=== PATIENT | female | born 1995 | race Caucasian/White ===

== ENCOUNTER 2019-04-07 18:06 | Inpatient (IN) | payer OTHER, SELFPAY | END 2019-04-10 11:25 | disposition home or self-care (01) | DRG 195 | PROVIDERS: Admitting Provider Internal Medicine; Emergency Provider General Practice; PCP Family Medicine; Visit Provider Internal Medicine | DX: J18.9 Pneumonia, unspecified organism (principal); F41.8 Other specified anxiety disorders; F90.9 Attention-deficit hyperactivity disorder, unspecified type; R00.0 Tachycardia, unspecified; E86.0 Dehydration; E28.2 Polycystic ovarian syndrome; J30.9 Allergic rhinitis, unspecified | CPT/HCPCS: 36415; 71046; 71275; 80048; 80053; 81025; 82533; 83605; 83690; 83735; 84439; 84443; 84484; 85025; 85027; 85380; 86308; 87040; 87081; 87449; 87880; 87899; 93005; 93306; 96361; 96365; 96375; 99285; A9270; J0131; J0456; J0696; J2765; J7030; J7060; J7120; Q9967 ==

== ENCOUNTER 2019-11-25 10:11 | Outpatient (CLI) | payer OTHER, SELFPAY ==
--- NOTE | ~2019-11-25 | XR_ITS ---
XR chest 2V DATE: 11/25/2019 10:35 INDICATION: Cough TECHNIQUE: PA and lateral views COMPARISON: CT pulmonary scan of 04/07/2019 04/07/2019 2 view chest FINDINGS: Normal heart size. No hilar or mediastinal enlargement. No pulmonary infiltrate or consolid ation, pleural effusion or pulmonary vascular congestion or pneumothorax. Included skeletal structures appear normal. IMPRESSION: Negative chest Reviewed, dictated and finalized at location B. IMPRESSION: Negative chest
== END 2019-11-25 10:12 | disposition home or self-care (01) ==
LOC: ANHIMG 10:17
PROVIDERS: PCP Family Medicine; Visit Provider Family Medicine
DX: J20.9 Acute bronchitis, unspecified (principal)
CPT/HCPCS: 71046

== ENCOUNTER 2019-12-24 14:24 | Outpatient (CLI) | payer OTHER, SELFPAY ==
--- NOTE | ~2019-12-24 | XR_ITS ---
XR chest 2V DATE: 12/24/2019 14:39 INDICATION: Cough TECHNIQUE: PA and lateral views COMPARISON: 11/25/2019 2 view chest FINDINGS: Normal heart size. No hilar or mediastinal enlargement. No pulmonary infiltrate or consolid ation, pleural effusion or pulmonary vascular congestion or pneumothorax. Included skeletal structure s are unremarkable. IMPRESSION: No active cardiopulmonary disease Reviewed, dictated and finalized at location A.
== END 2019-12-24 14:25 | disposition home or self-care (01) ==
PROVIDERS: PCP Family Medicine; Visit Provider Family Medicine
DX: R68.89 Other general symptoms and signs (principal); R05 Cough
CPT/HCPCS: 71046; 87635; C9803; U0003

== ENCOUNTER 2020-01-26 13:39 | Outpatient (CLI) | payer OTHER, SELFPAY ==
--- NOTE | ~2020-01-26 | CT_ITS ---
EXAMINATION: CT sinus wo con DATE: 01/26/2020 14:30 INDICATION: Orthostatic hypotension. Sinusitis. TECHNIQUE: Computed tomography (CT) of the paranasal sinuses was performed without intravenous contra st. The dose-length product was 301.30 mGy-cm. Automated exposure control and iterative reconstructio n technique were employed. COMPARISON: None FINDINGS: Paranasal sinuses are pneumatized without significant mucosal thickening or air-fluid level . Ostiomeatal units are patent. Leftward nasal septal deviation. Mastoids are pneumatized. IMPRESSION: 1. No significant sinus disease. Reviewed, dictated and finalized at location A.
== END 2020-01-26 13:40 | disposition home or self-care (01) ==
PROVIDERS: PCP Family Medicine; Visit Provider Family Medicine
DX: I95.1 Orthostatic hypotension (principal); R05 Cough; R51 Headache
CPT/HCPCS: 70486

== ENCOUNTER 2020-02-19 08:30 | Outpatient (CLI) | payer OTHER, SELFPAY ==
--- NOTE | 2020-02-21 10:52 | WPDPFTINT ---
PFT Interpretation PFT Interpretation: This PFT met all criteria for ATS standards and reproducibility FEV/FVC post bronchodilator 65% of predicted FEV1 73% or 2.33 liters FVC 91% or 3.60 liters There was great improvement of post bronchodilator FVC by 510 ml and 16%. TLC 89% of predicted RV 69% RV/TLC 23% DLCO 66% when adjusted for alveolar volume but not adjusted for hemoglobin Flow volume loops showed appeared normal Impression: Moderate airflow obstruction with good response to bronchodilators. Mildly reduced diffusion capacity. This pattern is more consisten with Asthma/Reactive airway disease despite the low diffusion capacity.Clinical correlation is advised.
== END 2020-02-19 08:31 | disposition home or self-care (01) ==
PROVIDERS: PCP Family Medicine; Visit Provider Family Medicine
DX: R05 Cough (principal)
CPT/HCPCS: 94060; 94726; 94729

== ENCOUNTER 2020-03-27 15:15 | Emergency (ER) | payer OTHER, SELFPAY ==
--- NOTE | ~2020-03-27 | XR_ITS ---
EXAMINATION: XR chest 2V 03/27/2020 15:33 INDICATION: Shortness of breath and cough PROCEDURE: 2 view chest COMPARISON: Comparison to multiple prior studies sequentially, with oldest reviewed study dated 01/12. FINDINGS: The lungs are clear. The cardiomediastinal silhouette is within normal limits. There are no pleural effusions. There is no pneumothorax suspected. IMPRESSION: 1: NO ACUTE CARDIOPULMONARY DISEASE. Reviewed, dictated and finalized at location A.
[2020-03-27 15:28] VITALS: BP 135/78; PULSE 92; RESP 20; TEMP 36.4; O2SAT 100
--- NOTE | 2020-03-27 15:30 | ED.URI ---
HPI - URI/Sore Throat General Chief Complaint: Upper Respiratory Infection Stated Complaint: sob/cough Source: patient and RN notes reviewed Mode of arrival: ambulatory Limitations: no limitations History of Present Illness HPI Narrative: The patient- who has history of RAD, anxiety, obesity -presents with cough. Patient states she is compliant with her asthma medications including prednisone taper and call EMS yesterday for cough or shortness of breath. She was screened and released by EMS and then called her doctor. Her physician is scheduled to see her tomorrow but advised her to be checked today possibly for chest x-ray. She was hospitalized, and had pneumonia last year seen on chest CT scan done for PE, and good chest x-ray since; also had a noncontributory COVID test this last week. She complains of continued nonproductive cough, minimally responsive to cough syrup, updrafts [unresponsive to other meds like Tessalon Perles, prior antibiotics x2 ] She is a non-smoker, yet has a pet dog that she sleeps with; no fever, sputum changes, calf pain/edema, recent trips, sick contacts, loss of taste/smell, N/V/D/dehydration. She does feel lightheaded when coughing hard, so recommend to go to hospital for higher test if not improved. Otherwise, advised to keep pulmonary appointment tomorrow Related Data Home Medications Medication Instructions Recorded Confirmed cetirizine 10 mg capsule 10 mg PO DAILY 03/01/20 03/27/20 budesonide-formoterol [Symbicort] INHALATION BID 03/27/20 levalbuterol tartrate [Xopenex HFA] inh INHALATION BID 03/27/20 Allergies Allergy/AdvReac Type Severity Reaction Status Date / Time lactase Allergy Unknown diarrhea Verified 12/24/19 11:07 lactose Allergy Unknown Diarrhea Verified 12/24/19 11:07 Review of Systems Review of Systems: Narrative: General/Constitutional: No weight loss,fever Eyes: N0: Redness,discharge Ears/Nose/Throat: No: Epistaxis,ear discharge Respiratory: Denies: Hemoptysis Gastrointestinal: No Vomiting, Bleeding-rectal Skin: No Lumps, eruption Neurologic: No Focal Weakness,Sz Hematologic: Denies: Petechiae/Purpura Psychiatric: No: Suicida ideationl All Other Systems: Reviewed and Negative [facility] Social History Social History Social History: Single Smoking status: Never smoker Second hand tobacco smoke exposure: No Alcohol intake: never Substance use: never Substance use type: does not use Gender identity (if verbalized by the patient): Female Comments At time of signature, agree with nursing past medical, surgical, social and family history. There is no relevant family history pertinent to the presenting complaint Exam Narrative: Exam Narrative: General Appearance: Obese, , No distress EYE: PERRLA, Conjunctiva clear Ears: External ear normal Nose: Normal nose Mouth/Throat: Normal appearing, Normal lips Neck: Supple Respiratory: Airway patent, No respiratory distress, CTA Cardiovascular: distant RRR Musculoskeletal: Full ROM Skin: Warm, Dry Neurological: A&O x3, CN II-X intact Psychiatric: Normal mood, Normal affect Course Vital Signs Vital signs: Vital Signs Temperature 97.5 F L 03/27/20 15:28 Pulse Rate 92 03/27/20 15:28 Respiratory Rate 20 03/27/20 15:28 Blood Pressure 135/78 03/27/20 15:28 Pulse Oximetry 100 03/27/20 15:28 Temperature 97.5 F L 03/27/20 15:28 Pulse Rate 92 03/27/20 15:28 Respiratory Rate 20 03/27/20 15:28 Blood Pressure 135/78 03/27/20 15:28 Pulse Oximetry 100 03/27/20 15:28 Discharge Plan Discharge Clinical Impression: Chronic cough Patient Disposition: Home, Self-Care Condition: Stable Instructions: Chronic Cough (ED) Additional Instructions: See resource manager/her doctor as scheduled this week Continue your prior lung medicines Prescriptions: New montelukast [Singulair] 10 mg tablet 10 mg
== END 2020-03-27 16:38 | disposition home or self-care (01) ==
PROVIDERS: Emergency Provider Emergency Medicine; PCP Family Medicine
DX: R05 Cough (principal); R06.02 Shortness of breath; J45.909 Unspecified asthma, uncomplicated
CPT/HCPCS: 71046; 99213; G0463

== ENCOUNTER 2020-04-16 14:10 | Emergency (ER) | payer OTHER, SELFPAY ==
--- NOTE | 2020-04-16 14:14 | ED.URI ---
HPI - URI/Sore Throat General Chief Complaint: Upper Respiratory Infection Stated Complaint: cough/fatigue/congestion/elevated bp/chest tightne Time Seen by Provider: 04/16/20 14:18 Source: patient and RN notes reviewed Mode of arrival: ambulatory Limitations: no limitations History of Present Illness HPI Narrative: 24-year-old female with history of asthma presents with concern for cough, feeling increased heart rate, increased blood pressure, nasal congestion, postnasal drainage for 1 week. Reports symptoms have got worse over the last 2 days. Reports she has not needed to use her albuterol rescue inhaler in the last 2 days. Reports she has been taking her routine asthma meds as prescribed. Denies fever, chills, body aches. MD elicited complaint: cough Related Data Home Medications Medication Instructions Recorded Confirmed budesonide-formoterol [Symbicort] INHALATION BID 03/27/20 levalbuterol tartrate [Xopenex HFA] inh INHALATION BID 03/27/20 Allergies Allergy/AdvReac Type Severity Reaction Status Date / Time lactase Allergy Unknown diarrhea Verified 12/24/19 11:07 lactose Allergy Unknown Diarrhea Verified 12/24/19 11:07 Review of Systems Review of Systems: Narrative: CONSTITUTIONAL: Reports malaise, fatigue. Denies chills, sweats, or fever. EYES: Denies visual changes, redness, or discharge. ENT: Reports rhinorrhea, congestion. Denies sinus pain, otalgia and sore throat. CARDIOVASCULAR: Denies chest pain, palpitations, or edema. RESPIRATORY: Reports cough, occasional dyspnea. GASTROINTESTINAL: Denies abdominal pain, nausea, vomiting, diarrhea SKIN: Denies rash or itching. MUSCULOSKELETAL: Denies myalgia. NEUROLOGIC: Denies headache. All systems reviewed & are unremarkable except as noted in HPI and below PMFSH Social History Social History Social History: Single Smoking status: Never smoker Second hand tobacco smoke exposure: No Alcohol intake: never Substance use: never Substance use type: does not use Gender identity (if verbalized by the patient): Female Comments At time of signature, agree with nursing past medical, surgical, social and family history. There is no relevant family history pertinent to the presenting complaint Exam Narrative: Exam Narrative: GENERAL: Well-appearing, well-nourished, and in no acute distress. HEAD: Normocephalic EYES: PERRLA, conjunctivae clear ENT: Nares clear, turbinates edematous and erythematous, clear discharge. Mucous membranes moist. TM pearly gale with dull light reflex bilaterally; no tragal tenderness. Oropharynx not erythematous without lesions. Tonsils not enlarged and without exudate, no drooling, no hoarseness, no trismus, uvula midline. NECK: Supple. No lymphadenopathy CHEST: Clear to auscultation, breath sounds equal. No wheezing, rhonchi, rales, or stridor. No respiratory distress, speaks in full sentences. HEART: Regular rate and rhythm. No murmur heard. SKIN: Warm, dry, no rash. NEURO: Alert and oriented x3. PSYCH: Normal mood and affect Course Course Emergency Course: Patient is aware of diagnosis, understands and agrees to treatment plan. Anticipatory guidance given. Patient agrees to follow-up as directed and is aware of reasons to seek care at the emergency department. Portions of this record may have been created with voice recognition software Vital Signs Vital signs: Vital Signs Temperature 98.1 F 04/16/20 14:16 Pulse Rate 123 H 04/16/20 14:16 Respiratory Rate 04/16/20 14:16 Blood Pressure 150/98 H 04/16/20 14:16 Pulse Oximetry 100 04/16/20 14:16 Temperature 98.1 F 04/16/20 14:16 Pulse Rate 123 H 04/16/20 14:16 Respiratory Rate 04/16/20 14:16 Blood Pressure 150/98 H 04/16/20 14:16 Pulse Oximetry 100 04/16/20 14:16 Reviewed. MDM - URI/Sore Throat MDM Narrative Medical decision making narrative: Differential diagnosis considered: Cor
[2020-04-16 14:16] VITALS: BP 150/98; PULSE 123; RESP 20; TEMP 36.7; O2SAT 100
== END 2020-04-16 14:35 | disposition home or self-care (01) ==
PROVIDERS: Emergency Provider Nurse Practitioner; PCP Family Medicine
DX: J06.9 Acute upper respiratory infection, unspecified (principal); J45.909 Unspecified asthma, uncomplicated
CPT/HCPCS: 99213; G0463

== ENCOUNTER 2020-08-09 15:57 | Emergency (ER) | payer OTHER, SELFPAY ==
[2020-08-09 16:11] VITALS: BP 136/92; PULSE 95; RESP 20; TEMP 36.6; O2SAT 100
--- NOTE | 2020-08-09 16:11 | ED.GENADULT ---
HPI - General Adult General Chief complaint: Upper Respiratory Infection Stated complaint: throat swollen Time Seen by Provider: 08/09/20 16:16 Source: patient and RN notes reviewed Mode of arrival: ambulatory Limitations: no limitations History of Present Illness HPI narrative: 24-year-old female presents with complaints of sore throat with right tonsil swelling for the past 3 days. Patricia says she has been having a increasing sore throat and RT tonsil swelling for the past 3 days, symptoms has been off and on for the past 2-3 months. Zyrtec (none in 3-4 days unable to locate it per Patricia) and routine Asthma medication with little relief. No high fevers, drooling, neck or throat swelling. Pain is bilateral. Hurts to swallow. Exacerbation factors consist of eating and drinking. No rhinorrhea or nasal congestion. No voice change. Tolerating liquids well. Denies chills, dyspnea, difficulty swallowing, jaw pain, dental pain, facial pain, foreign body sensation, and rash. LMP 07/30-05-15, denies being . Remains active. The patient reports she have not been diagnosed with COVID-19. The patient reports she is not waiting for the results of a COVID-19 lab test. The patient reports she do not have fever, chills, weakness, or fatigue. The patient reports she do not have a new or worsening cough or shortness of breath. Denies chest pain. The patient reports she do not have any loss of taste, nausea, vomiting, abdominal pain, and diarrhea. Denies recent traveling. Patricia says she is concerned for COVID-19 due to having people (with masks) in home helping with moving over the past 3-4 days. Otherwise denies exposures been home with limited outdoor exposure except for essential household needs, work (none in 2 weeks), and return home. At this time, patient is not suspected of having COVID-19. Some parts of this dictation were generated by voice recognition software and may contain typographical and/or grammatical inaccuracies. Related Data Home Medications Medication Instructions Recorded Confirmed budesonide-formoterol [Symbicort] 1 puff INHALATION BID 03/27/20 08/09/20 levalbuterol tartrate [Xopenex HFA] inh INHALATION BID 03/27/20 Allergies Allergy/AdvReac Type Severity Reaction Status Date / Time grass pollen Allergy Mild Itching Verified 07/27/20 10:17 oak Allergy Mild Itching Verified 07/27/20 10:17 lactase Allergy Unknown diarrhea Verified 07/27/20 10:17 lactose Allergy Unknown Diarrhea Verified 07/27/20 10:17 Review of Systems Review of Systems: Narrative: CONSTITUTIONAL: Denies fever, chills, sweats. EYES: Denies visual changes, redness, discharge. ENT: Denies rhinorrhea, cngestion, otalgia. Complains of sore throat with right tonsil swelling. CARDIOVASCULAR: Denies chest pain, palpitations, edema. RESPIRATORY: Denies dyspnea, wheezing, cough. GASTROINTESTINAL: Denies abdominal pain, nausea, vomiting, diarrhea. SKIN: Denies rash or itching. MUSCULOSKELETAL: Denies acute back pain, joint pain, or myalgia. NEUROLOGIC: Denies numbness or focal weakness. PSYCHIATRIC: Denies anxiety or depression. All systems reviewed & are unremarkable except as noted in HPI and below. [facility] Past Medical History Medical History (Updated 08/09/20 @ 16:28 by TEE Abernathy) Acute sinusitis Chronic cough Depression Gastroenteritis Generalized anxiety disorder Hirsutism History of bronchitis History of suicidal ideation Infected pilonidal cyst MDD (major depressive disorder), recurrent episode, moderate Obesity (BMI 35.0-39.9 without comorbidity) Pollen allergies Polycystic ovarian syndrome Strain of right knee Tachycardia Surgical History Surgical History (Updated 08/09/20 @ 16:25 by TEE Abernathy) History of myringotomy Family History Family History Mother Depression Unknown Diabetes mellitus Cancer Hypertension
== END 2020-08-09 16:46 | disposition home or self-care (01) ==
PROVIDERS: Emergency Provider Nurse Practitioner Family; PCP Family Medicine
DX: J02.9 Acute pharyngitis, unspecified (principal); Z20.828 Contact with and (suspected) exposure to other viral communicable diseases; E28.2 Polycystic ovarian syndrome
CPT/HCPCS: 87081; 87804; 87880; 99213; G0463

== ENCOUNTER 2021-01-24 15:30 | Outpatient (CLI) | payer OTHER, SELFPAY ==
--- NOTE | ~2021-01-24 | XR_ITS ---
XR chest 2V DATE: 01/24/2021 16:00 INDICATION: Cough, tachycardia. History of asthma. TECHNIQUE: PA and lateral views COMPARISON: 03/27/2020 2 view chest FINDINGS: Normal heart size. No hilar or mediastinal enlargement. The lungs are normally inflated and clear of infiltrate or consolidation. No pleural effusion or pulmonary vascular congestion or pneumo thorax. IMPRESSION: No active cardiac pulmonary disease Reviewed, dictated and finalized at location A.
[2021-01-24 16:28] LABS: Basophils Percent Auto 0.2 % (0.2-1.2); Eosinophils Absolute Auto 0.1 K/mm3 (0-0.3); Eosinophils Percent Auto 1.3 % (0-4.4); Hematocrit 42.9 % (37.0-47.0); Hemoglobin 14.2 g/dL (12.0-15.0); Immature Granulocyte Absolute 0.03 K/mm3 (0.00-0.031); Immature Granulocyte Percent A 0.3 % (0-0.5); Lymphocytes Percent Auto 25.8 % (18.3-44.2); Mean Corpuscular HGB Conc 33.1 g/dl (32-36); Mean Corpuscular Hemoglobin 29.3 pg (26-34); Mean Corpuscular Volume 88.6 fl (80-100); Monocytes Absolute Auto 0.5 K/mm3 (0.1-0.6); Neutrophils Absolute Auto 6.5 K/mm3 (1.3-6.7); Neutrophils Percent Auto 67.4 % (45.5-73.1); Platelet Count Result 364 k/mm3 (150-375); Red Blood Count 4.84 M/mm3 (4.2-5.4); Red Cell Distribution Width 11.8 % (11.5-14.5); White Blood Count 9.7 K/mm3 (4.5-10.0)
[2021-01-24 16:37] LABS: Alanine Aminotransferase 17 U/L (4-35); Albumin Level 4.6 g/dL (3.5-5.1); Alkaline Phosphatase 74 U/L (38-126); Anion Gap 11 mmol/L (8-16); Aspartate Amino Transferase 23 U/L (14-36); Bilirubin,Total 0.5 mg/dL (0.2-1.3); Blood Urea Nitrogen 10 mg/dL (7-17); Calcium 9.9 mg/dL (8.4-10.2); Carbon Dioxide 27 mmol/L (22-30); Chloride 103 mmol/L (98-107); Estimated Glomerular Filt Rate > 60; Glucose 93 mg/dL (65-105); Potassium 3.9 mmol/L (3.4-5.0); Sodium 141 mmol/L (137-145)
[2021-01-24 17:50] LABS: Erythrocyte Sedimentation Rate 17 mm/hr (0-20)
== END 2021-01-24 15:31 | disposition home or self-care (01) ==
LOC: ANHIMG 15:39
PROVIDERS: PCP Family Medicine; Visit Provider Family Medicine
DX: R05 Cough (principal); R00.0 Tachycardia, unspecified; J45.909 Unspecified asthma, uncomplicated
CPT/HCPCS: 36415; 71046; 80053; 85025; 85652

== ENCOUNTER → 2021-03-24 07:01 | Outpatient (CLI) | payer OTHER, SELFPAY ==
[2021-03-24 18:52] LABS: SARS-CoV-2 RNA PCR Negative
== END ==
PROVIDERS: PCP Family Medicine; Visit Provider Family Medicine
DX: R09.89 Other specified symptoms and signs involving the circulatory and respiratory systems (principal)
CPT/HCPCS: C9803; U0003; U0005

== ENCOUNTER 2021-03-25 14:39 | Emergency (ER) | payer OTHER, SELFPAY ==
[2021-03-25 14:44] VITALS: BP 141/84; PULSE 99; RESP 16; TEMP 36.4; O2SAT 99
--- NOTE | 2021-03-25 15:56 | ED.URI ---
HPI - URI/Sore Throat General Chief Complaint: Upper Respiratory Infection Stated Complaint: CHEST PAIN Source: patient and RN notes reviewed Limitations: no limitations History of Present Illness HPI Narrative: The vaccinated patient-- a non-smoker/nondrinker with a history of RAD-- presents with 1/2-week history of initially definite but resolving diarrhea, followed by cough, myalgias with back pains. No fever, wheeze, CP, loss of taste/smell, S OB, wheezing, vomiting; she had prior negative Covid test. Symptoms are mild, unrelieved with OTC preparations like Zyrtec, Symbicort-and her asthma is not worse. Related Data Home Medications Medication Instructions Recorded Confirmed budesonide-formoterol [Symbicort] 1 puff INHALATION BID 03/27/20 01/28/21 Allergies Allergy/AdvReac Type Severity Reaction Status Date / Time grass pollen Allergy Mild Itching Verified 01/24/21 14:28 oak Allergy Mild Itching Verified 01/24/21 14:28 lactase Allergy Unknown diarrhea Verified 01/24/21 14:28 lactose Allergy Unknown Diarrhea Verified 01/24/21 14:28 Review of Systems Review of Systems: The patient has been informed that they may have pre-hypertension or Hypertension based on a BP reading in the department. I recommend that the patient call the primary care provider listed on their discharge instructions or a physician of their choice this week to arrange follow up for further evaluation of possible pre-hypertension or Hypertension General/Constitutional: No weight loss,fever Eyes: N0: Redness,discharge Ears/Nose/Throat: No: Epistaxis,ear discharge Respiratory: Denies: Hemoptysis Gastrointestinal: No Vomiting, Bleeding-rectal Skin: No Lumps, eruption Neurologic: No Focal Weakness,Sz Hematologic: Denies: Petechiae/Purpura Psychiatric: No: Suicida ideationl All Other Systems: Reviewed and Negative [facility] Past Medical History Medical History Acute sinusitis Chronic cough Depression Gastroenteritis Generalized anxiety disorder Hirsutism History of bronchitis History of suicidal ideation Infected pilonidal cyst MDD (major depressive disorder), recurrent episode, moderate Obesity (BMI 35.0-39.9 without comorbidity) Pollen allergies Polycystic ovarian syndrome Strain of right knee Tachycardia Surgical History Surgical History History of myringotomy Family History Family History Mother Depression Unknown Diabetes mellitus Cancer Hypertension Social History Social History Social History: Single Second hand tobacco smoke exposure: No Alcohol intake: never Alcohol use details: rarely Substance use: never Substance use type: does not use Gender identity (if verbalized by the patient): Female Comments At time of signature, agree with nursing past medical, surgical, social and family history. There is no relevant family history pertinent to the presenting complaint Exam Narrative: General Appearance: Well appearing, Well nourished EYE: PERRLA, Conjunctiva clear Ears: Auditory canal normal, TM normal Nose: Rhinorrhea, Mucousal erythema Mouth/Throat: MM moist, Uvula midline, Pharyngeal erythema Neck: Supple, No adenopathy Respiratory: No respiratory distress, Breath sounds equal, Clear to auscultation Cardiovascular: RRR, No JVD Musculoskeletal: Non tender, Normal strength Skin: Warm, Dry Neurological: A&O x3, CN II-XII intact Psychiatric: Normal mood, Normal affect Course Vital Signs Vital signs: Vital Signs Temperature 97.6 F 03/25/21 14:44 Pulse Rate 99 03/25/21 14:44 Respiratory Rate 16 03/25/21 14:44 Blood Pressure 141/84 H 03/25/21 14:44 Pulse Oximetry 99 03/25/21 14:44 Temperature 97.6 F 03/25/21 14:44 Pulse Rate 99
== END 2021-03-25 16:13 | disposition home or self-care (01) ==
PROVIDERS: Emergency Provider Emergency Medicine; PCP Family Medicine
DX: J11.1 Influenza due to unidentified influenza virus with other respiratory manifestations (principal); Z20.822 Contact with and (suspected) exposure to COVID-19; E28.2 Polycystic ovarian syndrome; E66.9 Obesity, unspecified; Z68.37 Body mass index [BMI] 37.0-37.9, adult
CPT/HCPCS: 99213; G0463

== ENCOUNTER → 2021-04-21 03:59 | Outpatient (CLI) | payer OTHER, SELFPAY ==
[2021-04-21 18:23] LABS: SARS-CoV-2 RNA PCR Negative
== END ==
PROVIDERS: Emergency Medicine; PCP Family Medicine; Visit Provider Physician Assistant
DX: R05 Cough (principal); Z20.822 Contact with and (suspected) exposure to COVID-19
CPT/HCPCS: C9803; U0003; U0005

== ENCOUNTER 2021-11-14 13:50 | Emergency (ER) | payer OTHER, SELFPAY ==
--- NOTE | 2021-11-14 14:21 | ED.SKABFB ---
HPI - Skin/Abscess/Foreign Bdy General Chief complaint: Extremity Injury, Lower Stated complaint: Rt Foot Irritation Time Seen by Provider: 11/14/21 14:45 Source: patient and RN notes reviewed Mode of arrival: ambulatory Limitations: no limitations History of Present Illness HPI narrative: 26-year-old female presents with concern for irritation, extra flap of skin, bleeding for 5 days to the medial edge of the first toenail of the right foot. Reports she has been using a Band-Aid and Neosporin. She denies any purulent drainage. She denies any injury or trauma. She reports history of ingrown toenail as a child. MD complaint: other Related Data Home Medications Medication Instructions Recorded Confirmed dextroamphetamine-amphetamine ER 15 mg PO DAILY 04/20/21 11/14/21 15 mg 24hr capsule,extend release budesonide-formoterol [Symbicort] 1 inh INHALATION DAILY 11/14/21 11/14/21 Allergies Allergy/AdvReac Type Severity Reaction Status Date / Time grass pollen Allergy Mild Itching Verified 11/14/21 14:40 oak Allergy Mild Itching Verified 11/14/21 14:40 lactase Allergy Unknown diarrhea Verified 11/14/21 14:40 lactose Allergy Unknown Diarrhea Verified 11/14/21 14:40 Review of Systems Review of Systems: CONSTITUTIONAL: Denies malaise, chills, sweats, or fever. SKIN: Reports painful slowly bleeding swollen area near the right toenail MUSCULOSKELETAL: Denies musculoskeletal pain NEUROLOGIC: Denies decreased sensation, strength, range of motion All systems reviewed & are unremarkable except as noted in HPI and below PMFSH Past Medical History Medical History Acute sinusitis Chronic cough Depression Gastroenteritis Generalized anxiety disorder Hirsutism History of bronchitis History of suicidal ideation Infected pilonidal cyst MDD (major depressive disorder), recurrent episode, moderate Obesity (BMI 35.0-39.9 without comorbidity) Pollen allergies Polycystic ovarian syndrome Strain of right knee Tachycardia Surgical History Surgical History History of myringotomy Family History Family History Mother Depression Unknown Diabetes mellitus Cancer Hypertension Social History Social History (Updated 06/09/21 @ 10:54 by Alejandrina Arnold Social History: Single Smoking status: Never smoker Second hand tobacco smoke exposure: No Alcohol intake: never Alcohol use details: rarely Substance use: never Substance use type: does not use Additional occupation/education comments: Pt goes to school as well. Gender identity (if verbalized by the patient): Female Sexual Orientation (if Verbalized by the Patient): Straight or Heterosexual Comments At time of signature, agree with nursing past medical, surgical, social and family history. There is no relevant family history pertinent to the presenting complaint Exam Narrative: GENERAL: Well-appearing, well-nourished, and in no acute distress. HEAD: Normocephalic EYES: PERRLA, conjunctivae clear ENT: Mucous membranes moist. NECK: Supple. No lymphadenopathy CHEST: Clear to auscultation. No respiratory distress. HEART: Regular rate and rhythm. SKIN: Warm, dry. Paronychia noted to the right medial toenail with and a flap of open skin, no fluctuance or purulent drainage noted NEURO: Alert and oriented x3. PSYCH: Normal mood and affect Course Course Emergency Course: Patient is aware of diagnosis, understands and agrees to treatment plan. Anticipatory guidance given. Patient agrees to follow-up as directed and is aware of reasons to seek care at the emergency department. Portions of this record may have been created with voice recognition software Level of Care: Express Care Visit Vital Signs Vital signs: Reviewed. MDM - Skin/Abscess/Foreign Bdy MDM Narrative Medical decision rubi
[2021-11-14 14:27] VITALS: BP 126/74; PULSE 101; RESP 18; TEMP 36.6; O2SAT 100
== END 2021-11-14 15:00 | disposition home or self-care (01) ==
PROVIDERS: Emergency Provider Nurse Practitioner; PCP Family Medicine
DX: L03.031 Cellulitis of right toe (principal); E66.9 Obesity, unspecified; Z68.38 Body mass index [BMI] 38.0-38.9, adult; L68.0 Hirsutism
CPT/HCPCS: 99213; G0463

== ENCOUNTER 2022-05-14 15:27 | Emergency (ER) | payer OTHER, SELFPAY ==
[2022-05-14 15:36] VITALS: BP 123/65; PULSE 102; RESP 18; TEMP 36.6; O2SAT 99
[2022-05-14 15:48] VITALS: BP 123/65; PULSE 102; RESP 18; TEMP 36.6; O2SAT 99
--- NOTE | 2022-05-14 16:08 | ED.URI ---
HPI - URI/Sore Throat General Chief Complaint: Upper Respiratory Infection Stated Complaint: Body Aches,Weakness Time Seen by Provider: 05/14/22 15:45 Source: patient, RN notes reviewed and old records reviewed Mode of arrival: ambulatory Limitations: no limitations History of Present Illness HPI Narrative: 26-year-old female who [facility] with complaints of 1 hour ago developing symptoms of feeling very weak and shaky with body aches, reports that yesterday she had runny nose and her ears felt stuffy. Patient has had covid vaccinations and also booster in August of 2021. Patient denies any cough or any known fevers, chills or sweats reports some headache discomfort. We will contact MD elicited complaint: other (body aches, weakness) Pertinent past history: asthma Pain scale (0-10): 5 Treatments prior to arrival: none Related Data Home Medications Medication Instructions Recorded Confirmed dextroamphetamine-amphetamine ER 15 mg PO PRN PRN Anxiety 04/20/21 05/14/22 15 mg 24hr capsule,extend release (Adderall XR) budesonide-formoterol HFA 160 1 inh inhalation PRN PRN Shortness 11/14/21 05/14/22 mcg-4.5 mcg/actuation aerosol Of Breath inhaler (Symbicort) Allergies Allergy/AdvReac Type Severity Reaction Status Date / Time grass pollen Allergy Mild Itching Verified 05/14/22 15:36 oak Allergy Mild Itching Verified 05/14/22 15:36 lactase Allergy Unknown diarrhea Verified 05/14/22 15:36 lactose Allergy Unknown Diarrhea Verified 05/14/22 15:36 Review of Systems Review of Systems: CONSTITUTIONAL: Denies fever, chills, or sweats. EYES: Denies visual changes, redness, or discharge. ENT: Positive for rhinorrhea, congestion,no sore throat, pressure to ears CARDIOVASCULAR: Denies chest pain, palpitations, or edema. RESPIRATORY: Denies cough or dyspnea. GASTROINTESTINAL: Denies abdominal pain,reports no nausea vomiting, or diarrhea. GENITOURINARY: Denies dysuria or hematuria. SKIN: Denies rash or itching. MUSCULOSKELETAL: Denies back pain, joint pain, body aches reported NEUROLOGIC: Positive for headache, no numbness or weakness. PSYCHIATRIC: Positive history of anxiety or depression. All systems reviewed & are unremarkable except as noted in HPI and below PMFSH Past Medical History Medical History Acute sinusitis Chronic cough Depression Gastroenteritis Generalized anxiety disorder Hirsutism History of bronchitis History of suicidal ideation Infected pilonidal cyst MDD (major depressive disorder), recurrent episode, moderate Obesity (BMI 35.0-39.9 without comorbidity) Pollen allergies Polycystic ovarian syndrome Strain of right knee Tachycardia Surgical History Surgical History History of myringotomy Family History Family History Mother Depression Unknown Diabetes mellitus Cancer Hypertension Social History Social History Social History: Single Smoking status: Never smoker Second hand tobacco smoke exposure: No Alcohol intake: current Alcohol use details: rarely Substance use: never Substance use type: does not use Additional occupation/education comments: Pt goes to school as well. Gender identity (if verbalized by the patient): Female Sexual Orientation (if Verbalized by the Patient): Straight or Heterosexual Comments At time of signature, agree with nursing past medical, surgical, social and family history. There is no relevant family history pertinent to the presenting complaint Exam Narrative: GENERAL: Well-appearing, well-nourished, and in no acute distress. HEAD: Normocephalic, atraumatic. EYES: PERRLA and EOMI. ENT: Nares with mild redness clear rhinorrhea or epistaxis. Mucous membranes moist.TM's normal with good light reflex, throa
[2022-05-14 21:16] LABS: SARS-CoV-2 RNA PCR Negative
== END 2022-05-14 16:26 | disposition home or self-care (01) ==
PROVIDERS: Emergency Provider Registered Nurse; PCP Family Medicine
DX: J06.9 Acute upper respiratory infection, unspecified (principal); Z20.822 Contact with and (suspected) exposure to COVID-19; F41.1 Generalized anxiety disorder; E66.01 Morbid (severe) obesity due to excess calories; Z68.38 Body mass index [BMI] 38.0-38.9, adult; E28.2 Polycystic ovarian syndrome
CPT/HCPCS: 87426; 87804; 99213; C9803; G0463; U0003; U0005

== ENCOUNTER 2022-11-24 14:33 | Emergency (ER) | payer SELFPAY ==
[2022-11-24 14:47] VITALS: BP 142/93; PULSE 100; RESP 20; TEMP 36.3; O2SAT 99
--- NOTE | 2022-11-24 14:48 | ED.GENADULT ---
HPI - General Adult General Chief complaint: Upper Respiratory Infection Stated complaint: flu like symptoms Time Seen by Provider: 11/24/22 14:48 Source: patient Mode of arrival: ambulatory Limitations: no limitations History of Present Illness HPI narrative: 27-year-old female patient presents to the [facility] requesting a work note. Patient states she started having ill symptoms a week ago yesterday and did test positive for COVID this past Saturday. Patient states she continues to have a cough slight shortness of breath and needs a note for work. Patient also requesting to be tested again but she because she states that her COVID test at home are here . Patient does have history of asthma and has been using her home inhaler at times. Denies shortness of breath at this time but states has had a cough. Denies any fevers recently. Related Data Home Medications Medication Instructions Recorded Confirmed budesonide-formoterol HFA 160 1 inh inhalation PRN PRN Shortness 11/14/21 10/23/22 mcg-4.5 mcg/actuation aerosol Of Breath inhaler (Symbicort) Allergies Allergy/AdvReac Type Severity Reaction Status Date / Time grass pollen Allergy Mild Itching Verified 11/24/22 15:05 oak Allergy Mild Itching Verified 11/24/22 15:05 lactase Allergy Unknown diarrhea Verified 11/24/22 15:05 lactose Allergy Unknown Diarrhea Verified 11/24/22 15:05 Review of Systems Review of Systems: CONSTITUTIONAL: Denies fever, chills, or sweats. EYES: Denies visual changes, redness, or discharge. ENT: Denies rhinorrhea, congestion, sore throat, or otalgia. CARDIOVASCULAR: Denies chest pain, palpitations, or edema. RESPIRATORY: Positive cough or dyspnea. GASTROINTESTINAL: Denies abdominal pain, nausea, vomiting, or diarrhea. GENITOURINARY: Denies dysuria or hematuria. SKIN: Denies rash or itching. MUSCULOSKELETAL: Denies back pain, joint pain, or myalgia. NEUROLOGIC: Denies headache, numbness, or weakness. PSYCHIATRIC: Denies anxiety or depression. [facility] Past Medical History Medical History Acute sinusitis At increased risk of exposure to COVID-19 virus Chronic cough Depression Gastroenteritis Generalized anxiety disorder Hirsutism History of bronchitis History of suicidal ideation Infected pilonidal cyst MDD (major depressive disorder), recurrent episode, moderate Obesity (BMI 35.0-39.9 without comorbidity) Pollen allergies Polycystic ovarian syndrome Strain of right knee Tachycardia Surgical History Surgical History History of myringotomy Family History Family History Mother Depression Unknown Diabetes mellitus Cancer Hypertension Social History Social History Social History: Single Smoking status: Never smoker Second hand tobacco smoke exposure: No Alcohol intake: current Alcohol use details: rarely Substance use: never Substance use type: does not use Living arrangements: with family Occupation/Education: occupation Additional occupation/education comments: Pt goes to school as well. Gender identity (if verbalized by the patient): Female Sexual Orientation (if Verbalized by the Patient): Straight or Heterosexual Comments At the time of my signature I agree with nursing past medical history, surgical, social, and family history. There is no relevant family history pertinent to the presenting complaint. Exam Narrative: GENERAL: Well-appearing, well-nourished, and in no acute distress. HEAD: Normocephalic, atraumatic. EYES: PERRLA and EOMI. ENT: Nares clear, no rhinorrhea or epistaxis. Mucous membranes moist. NECK: Supple. No lymphadenopathy CHEST: Clear to auscultation. No respiratory distress. HEART: Regular rate and rhythm. No murmur heard. Normal peripheral pu
== END 2022-11-24 15:16 | disposition home or self-care (01) ==
PROVIDERS: Emergency Provider Nurse Practitioner Family; PCP Family Medicine
DX: B34.9 Viral infection, unspecified (principal); E28.2 Polycystic ovarian syndrome; E66.9 Obesity, unspecified; Z68.39 Body mass index [BMI] 39.0-39.9, adult
CPT/HCPCS: 99211; G0463

== ENCOUNTER 2023-05-14 13:56 | Emergency (ER) | payer OTHER, SELFPAY ==
[2023-05-14 14:19] VITALS: BP 118/79; PULSE 81; RESP 16; TEMP 36.3; O2SAT 100
--- NOTE | 2023-05-14 14:48 | ED.SKABFB ---
HPI - Skin/Abscess/Foreign Bdy General Chief complaint: Skin/Abscess/Foreign Body Stated complaint: Cyst Source: patient Mode of arrival: ambulatory Limitations: no limitations History of Present Illness HPI narrative: 27-year-old female presented for complaint of a draining cyst to her tailbone for 2 months. She states she has had this cyst for 2 years, and at the onset it was painful and was drained at that time. Has had no complications since them. Denies trauma to the site. States it just started oozing yellow or bloody drainage. Denies pain. She denies nausea, vomiting, diarrhea, fevers or chills. Denies any other locations of skin problems. Not applying anything to the site. Related Data Allergies Allergy/AdvReac Type Severity Reaction Status Date / Time lactase AdvReac Intermediate diarrhea Verified 05/14/23 14:00 lactose AdvReac Intermediate Diarrhea Verified 05/14/23 14:00 grass pollen AdvReac Mild Itching Verified 05/14/23 14:00 oak AdvReac Mild Itching Verified 05/14/23 14:00 Review of Systems Review of Systems: CONSTITUTIONAL: Denies body aches, fever, chills, or sweats. EYES: Denies visual changes, redness, or discharge. ENT: Denies rhinorrhea, congestion CARDIOVASCULAR: Denies chest pain, palpitations, or edema. RESPIRATORY: Denies cough or dyspnea. GASTROINTESTINAL: Denies abdominal pain, nausea, vomiting, or diarrhea. SKIN: Reports draining cyst on tailbone MUSCULOSKELETAL: Denies back pain, joint pain, or myalgia. NEUROLOGIC: Denies headache, numbness, tingling, or weakness. COUNTS INCLUDE 234 BEDS AT THE [facility] Past Medical History Medical History Acute sinusitis At increased risk of exposure to COVID-19 virus Chronic cough Depression Gastroenteritis Generalized anxiety disorder Hirsutism History of bronchitis History of suicidal ideation Infected pilonidal cyst MDD (major depressive disorder), recurrent episode, moderate Obesity (BMI 35.0-39.9 without comorbidity) Pollen allergies Polycystic ovarian syndrome Strain of right knee Tachycardia Surgical History Surgical History History of myringotomy Family History Family History Mother Depression Unknown Diabetes mellitus Cancer Hypertension Social History Social History Social History: Single Smoking status: Never smoker Second hand tobacco smoke exposure: No Alcohol intake: current Alcohol use details: rarely Substance use: never Substance use type: does not use Living arrangements: with family Occupation/Education: occupation Additional occupation/education comments: Pt goes to school as well. Gender identity (if verbalized by the patient): Female Sexual Orientation (if Verbalized by the Patient): Straight or Heterosexual Comments At time of signature, I have reviewed and agree with nursing past medical, surgical, social and family history unless otherwise noted. Please see nursing chart for further information. There is no relevant family history pertinent to the presenting complaint Exam Narrative: GENERAL: Well-appearing HEAD: Normocephalic, atraumatic. EYES: conjunctivae clear, and EOMI. ENT: Mucous membranes moist. Oropharynx without edema, erythema or lesions. NECK: Supple. No lymphadenopathy CHEST: Clear to auscultation. HEART: Regular rate and rhythm. SKIN: Warm, dry. Coccyx with 1cm diameter open area with erythematous tissue, scant purulent and bloody drainage; no surrounding induration, fluctuance, or tenderness; site is nontender. NEURO: Alert and oriented x3. Course Course Emergency Course: Patient is aware of diagnosis, understands and agrees to treatment plan. Anticipatory guidance given. Patient agrees to follow-up as directed and is aware of reasons to seek care at the [facility]
== END 2023-05-14 15:12 | disposition home or self-care (01) ==
PROVIDERS: Emergency Provider Nurse Practitioner Family
DX: L05.91 Pilonidal cyst without abscess (principal); E66.9 Obesity, unspecified; Z68.39 Body mass index [BMI] 39.0-39.9, adult; E28.2 Polycystic ovarian syndrome
CPT/HCPCS: 99213; G0463

== ENCOUNTER 2023-07-01 09:40 | Emergency (ER) | payer OTHER, SELFPAY ==
[2023-07-01 10:03] VITALS: BP 147/74; PULSE 99; RESP 18; TEMP 36.3; O2SAT 98
--- NOTE | 2023-07-01 10:52 | ED.FEMALEGU ---
HPI - Female Genitourinary General Chief complaint: Urogenital-Female Stated complaint: uti symptoms Time Seen by Provider: 07/01/23 10:43 Source: patient and RN notes reviewed Mode of arrival: ambulatory Limitations: no limitations History of Present Illness HPI Narrative: Patient presents today complaining of a 2 day history of dysuria and frequency. Denies abdominal pain, back pain for hematuria, or any additional symptoms. She has tried no medication for symptoms prior to arrival. Related Data Home Medications Medication Instructions Recorded Confirmed No Home Medications 07/01/23 07/01/23 Allergies Allergy/AdvReac Type Severity Reaction Status Date / Time lactase AdvReac Intermediate diarrhea Verified 07/01/23 10:05 lactose AdvReac Intermediate Diarrhea Verified 07/01/23 10:05 grass pollen AdvReac Mild Itching Verified 07/01/23 10:05 oak AdvReac Mild Itching Verified 07/01/23 10:05 Review of Systems Review of Systems: CONSTITUTIONAL: Denies body aches, fever, chills, or sweats. EYES: Denies visual changes, redness, or discharge. ENT: Denies rhinorrhea, congestion, sore throat, or otalgia. CARDIOVASCULAR: Denies chest pain, palpitations, or edema. RESPIRATORY: Denies cough or dyspnea. GASTROINTESTINAL: Denies abdominal pain, nausea, vomiting, or diarrhea. GENITOURINARY: Denies hematuria.+ dysuria, frequency SKIN: Denies rash, itching, or wounds. MUSCULOSKELETAL: Denies back pain, joint pain, or myalgia. NEUROLOGIC: Denies headache, numbness, tingling, or weakness. PSYCH: Denies depression or anxiety. [facility] Past Medical History Medical History Acute sinusitis At increased risk of exposure to COVID-19 virus Chronic cough Depression Gastroenteritis Generalized anxiety disorder Hirsutism History of bronchitis History of suicidal ideation Infected pilonidal cyst MDD (major depressive disorder), recurrent episode, moderate Obesity (BMI 35.0-39.9 without comorbidity) Pollen allergies Polycystic ovarian syndrome Strain of right knee Tachycardia Surgical History Surgical History History of myringotomy Family History Family History Mother Depression Unknown Diabetes mellitus Cancer Hypertension Social History Social History Social History: Single Smoking status: Never smoker Second hand tobacco smoke exposure: No Alcohol intake: current Alcohol use details: rarely Substance use: never Substance use type: does not use Living arrangements: with family Occupation/Education: occupation Additional occupation/education comments: Pt goes to school as well. Gender identity (if verbalized by the patient): Female Sexual Orientation (if Verbalized by the Patient): Straight or Heterosexual Comments At time of signature, I have reviewed and agree with nursing past medical, surgical, social and family history unless otherwise noted. Please see nursing chart for further information. There is no relevant family history pertinent to the presenting complaint Exam Narrative: GENERAL: Well-appearing, well-nourished, and in no acute distress. HEAD: Normocephalic, atraumatic. EYES: EOMI. No redness or drainage. Conjunctivae normal. ENT: Mucous membranes pink and moist. NECK: Normal AROM. Supple. No lymphadenopathy. CHEST: No respiratory distress. EXTREMITIES: Normal range of motion. No edema. SKIN: Warm, dry, no rash. Capillary refill normal. Normal skin turgor. NEURO: No focal deficits. Alert and oriented x3. Gait steady. PSYCH: Normal affect. No signs of depression or anxiety. Course Course Level of Care: Express Care Visit Vital Signs Vital signs: Vital Signs Temperature 97.3 F L 07/01/23 10:03 Pulse Rate 99
== END 2023-07-01 10:56 | disposition home or self-care (01) ==
PROVIDERS: Emergency Provider Nurse Practitioner
DX: R30.0 Dysuria (principal); E66.9 Obesity, unspecified; Z68.41 Body mass index [BMI] 40.0-44.9, adult; E28.2 Polycystic ovarian syndrome
CPT/HCPCS: 81003; 87086; 87088; 99213; G0463

== ENCOUNTER 2024-08-20 15:40 | Emergency (ER) | payer OTHER, SELFPAY ==
[2024-08-20 15:52] VITALS: BP 140/77; PULSE 120; RESP 18; TEMP 36.1; O2SAT 98
--- NOTE | 2024-08-20 16:09 | ED.URI ---
HPI - URI/Sore Throat General Chief Complaint: Upper Respiratory Infection Stated Complaint: head pain/rapid heart rate/weakness/nausea History of Present Illness HPI Narrative: patient presents today with complaints headache in body aches. She reports that she began to feel unwell about a week ago. She has had continued loss of energy. She is not taking anything for her headache. She reports that she sought care for her symptoms twice in the past week before presenting today. She reports she was put on a steroid to treat her symptoms approximately 5 days ago, states that she completed this. She reports that it did help with a cough that has since resolved, but did not help with her headache. She has not taken any medications for her headache. She does report that she drinks approximately 64 oz of water per day. She denies any injury or trauma. She voices no other concerns or complaints at this time. She does report extensive travel over the past week. elevated heart rate noted. Patient reports that this is baseline for her Related Data Home Medications ?Medication ?Instructions ?Recorded ?Confirmed ?Last Taken ?Type lisdexamfetamine 10 mg capsule mg 08/20/24 Unknown History (Saundra) Allergies Allergy/AdvReac Type Severity Reaction Status Date / Time lactase AdvReac Intermediate diarrhea Verified 08/20/24 15:52 lactose AdvReac Intermediate Diarrhea Verified 08/20/24 15:52 grass pollen AdvReac Mild Itching Verified 08/20/24 15:52 oak AdvReac Mild Itching Verified 08/20/24 15:52 Review of Systems Review of Systems: All systems reviewed & are unremarkable except as noted in HPI and below Constitutional: Constitutional: Reports no additional constitutional complaints, Reports body ache(s), Reports headache(s) and Reports lethargy ENT: Reports system reviewed and no additional complaints, except as documented Cardiovascular: Cardiovascular: Reports no additional cardiovascular complaints Respiratory: Respiratory: Reports no additional respiratory complaints Gastrointestinal: Gastrointestinal: Reports no additional gastrointestinal complaints PMFSH Past Medical History Medical History Cough Hair follicle infection At increased risk of exposure to COVID-19 virus Tachycardia Pollen allergies Chronic cough Acute sinusitis Gastroenteritis Infected pilonidal cyst History of suicidal ideation History of bronchitis Depression Obesity (BMI 35.0-39.9 without comorbidity) Strain of right knee Generalized anxiety disorder Hirsutism MDD (major depressive disorder), recurrent episode, moderate Polycystic ovarian syndrome Surgical History Surgical History History of myringotomy Family History Family History Mother Depression Unknown Diabetes mellitus Cancer Hypertension Social History Social History Social History: Single Smoking status: Never smoker Second hand tobacco smoke exposure: No Alcohol intake: current Alcohol use details: rarely Substance use: never Substance use type: does not use Do You Feel Safe in your Home?: Yes Lack of Transportation: No Lack of Food: Never True Current Housing: I Have Housing Concerned About Future Housing: No Difficulty Paying Gas/Electric Bills: No Difficulty Paying for Meds: No Currently Unemployed: No Education: Don't Know Difficulty w/ Childcare or Family Care: No Living arrangements: with family Occupation/Education: occupation Additional occupation/education comments: Pt goes to school as well. Gender identity (if verbalized by the patient): Female Sexual Orientation (if Verbalized by the Patient): Straight or Heterosexual Exam Const: General: cooperative, no acute distress, alert, awake and poor hygiene Nutritional Appearance: obese Orientation/consciousness: oriented to person, oriented to place and oriented to time HENMT: Head: normal to inspection Ears: TM's normal bilaterally Mouth: Yes other ( Tacky mucous membranes) Resp: Effort & Inspection: normal respiratory effort and able to speak in complete sentences Auscultation: clear to auscultation bilaterally, no crackles, no rales, no rhonchi and no wheezes Cardio: Palpation: normal PMI Rate: regular rate Rhythm: regular rhythm Heart sounds: S1 normal heart sound present and S2 normal heart sound present Neuro: General: oriented to person, oriented to place and oriented to time Cranial nerves: Yes CN's II-XII intact bilaterally Psych: Appearance: grossly normal Thought process: Normal thought process present Insight: Good insight present (Psych) Judgement: Good judgement present (Psych) Course Course Level of Care: Express Care Visit Vital Signs Vital signs: Vital Signs Temperature 97.0 F L 08/20/24 15:52 Pulse Rate 120 H 08/20/24 15:52 Respiratory Rate 18 08/20/24 15:52 Blood Pressure 140/77 08/20/24 15:52 Pulse Oximetry 98 08/20/24 15:52 Oxygen Delivery Room Air 08/20/24 15:52 Temperature 97.0 F L 08/20/24 15:52 Pulse Rate 120 H 08/20/24 15:52 Respiratory Rate 18 08/20/24 15:52 Blood Pressure 140/77 08/20/24 15:52 Pulse Oximetry 98 08/20/24 15:52 Oxygen Delivery Room Air 08/20/24 15:52 MDM - URI/Sore Throat MDM Narrative Medical decision making narrative: negative flu, negative COVID, negative strep. Culture pending. UA without sign of infection. Blood glucose 103. All complaints are very vague, have been worked up both here and at other facilities. Patient does report a negative chest x-ray within the past week. just finished a course of prednisone. Said that this did help symptoms somewhat. Admits that she is not taking medication for the headache that she is complaining of. Does report that she does have headache medicine at home and will begin to take some. She is encouraged to increase fluid intake. Follow up primary care provider. Emergency department for new or worse symptoms. Discharge instructions reviewed with patient, as well as provided in writing per nursing staff. The instructions also include specific and strict return/GO TO THE ER as well as f/u information. All questions have been answered, and the patient deny any further questions with discharge and discharge plan. Some parts of this dictation were generated by voice recognition software and may contain typographical and/or grammatical inaccuracies. Differential Diagnosis Differential diagnosis: Likely upper respiratory infection, otitis media, sinusitis, viral infection and influenza Medical Records Attestation: I reviewed the patient's medical records. Lab Data Attestation: I reviewed the patient's lab results. Discharge Plan Discharge Clinical Impression: Viral infection Patient Disposition: Home, Self-Care Condition: Stable Instructions: Antibiotic Form, Viral Syndrome (ED) Additional Instructions: stay well hydrated. Treat symptoms with [id number] medications, follow package instruction. Follow-up with primary care provider. Emergency department for new or worse symptoms Patient Language: Greenlandic Prescriptions: No Action lisdexamfetamine [Vyvanse] 10 mg capsule budesonide-formoterol [Symbicort] 160-4.5 mcg/actuation HFA aerosol inhaler 2 puff inhalation Q12H Qty: 10.2 0RF Follow-up/Referrals: Binta Vasques MD [Primary Care Provider] - 3 Days Time of Disposition: 16:50
[2024-08-20 16:23] LABS: EDSTREPNEGPOS1 Negative (Negative)
[2024-08-20 16:37] LABS: Glucose Point of Care 103 mg/dl (65-105)
[2024-08-20 16:40] LABS: EDCOVIDSCREEN Negative (Negative)
[2024-08-20 16:40] LABS: EDINFLUASCREEN Negative (Negative); EDINFLUBSCREEN Negative (Negative)
[2024-08-20 16:48] LABS: BEDSIDEPREGUCG Negative (Negative)
[2024-08-20 16:50] LABS: EDUAAPPEAR Clear; EDUABILI Negative (Negative); EDUABLOOD Negative (Negative); EDUACOLOR1 Yellow; EDUAGLUCOSE Negative (Negative); EDUAKETONE Negative (Negative); EDUALEUKO Negative (Negative); EDUANITRATE Negative (Negative); EDUAPH 5.5; EDUAPROTEIN Negative (Negative); EDUASPGRAVITY 1.025; EDUAUROBILI 0.2
== END 2024-08-20 16:54 | disposition home or self-care (01) ==
PROVIDERS: Emergency Provider Nurse Practitioner Family; PCP Family Medicine
DX: B34.9 Viral infection, unspecified (principal); Z20.822 Contact with and (suspected) exposure to COVID-19
CPT/HCPCS: 81003; 81025; 82948; 87081; 87426; 87804; 87880; 99213; G0463